=== PATIENT | male | born 1985 | race Hispanic/Latino ===

== ENCOUNTER 2018-04-13 09:00 | Emergency (ER) | payer OTHER ==
[2018-04-13] MEDS: methylPREDNISolone INJ 125 MG/2 ML VIAL (J2930) IV (09:29)
== END 2018-04-13 12:06 | disposition home or self-care (01) ==
LOC: M ED 09:00
DX: L29.9 Pruritus, unspecified (principal); T78.40XA Allergy, unspecified, initial encounter
CPT/HCPCS: J2930